=== PATIENT | male | born 1990 | race Caucasian/White ===

== ENCOUNTER → 2017-05-02 | Outpatient (REF) | payer OTHER | LOC: M SFHCLACO 08:50 | DX: R60.9 Edema, unspecified (principal); E66.01 Morbid (severe) obesity due to excess calories; I10 Essential (primary) hypertension ==

== ENCOUNTER → 2017-10-30 | Outpatient (CLI) | payer OTHER ==
[2017-10-30 18:09] LABS: D-DIMER QUANT 320.1 ng/ml (<500)
== END ==
LOC: M SMT 14:44
DX: R09.02 Hypoxemia (principal)
CPT/HCPCS: 36415

== ENCOUNTER → 2017-11-11 | Outpatient (CLI) | payer OTHER | LOC: M SLEEP 19:38 | DX: G47.33 Obstructive sleep apnea (adult) (pediatric) (principal) | CPT/HCPCS: 95811 ==

== ENCOUNTER → 2017-12-20 | Outpatient (CLI) | payer OTHER | LOC: M SLEEP 19:43 | DX: G47.33 Obstructive sleep apnea (adult) (pediatric) (principal) | CPT/HCPCS: 95811 ==